=== PATIENT | female | born 1985 | race Caucasian/White ===

== ENCOUNTER 2017-07-19 12:12 | Observation (INO) | payer MEDICAID, OTHER ==
[~2017-07-19] VITALS: Ht 162.6 cm; Wt 77.1 kg
[2017-07-19] MEDS ORDERED: INSNPH SUBCUT (13:26)
[2017-07-19] MEDS ORDERED: METF10002 PO (13:27)
[2017-07-19 13:56] LABS: CLARITY URINE CLEAR (CLEAR); COLOR URINE YELLOW (YELLOW); KETONES URINE 1+ (NEGATIVE); LEUKOCYTE ESTERASE URINE NEGATIVE (NEGATIVE); NITRITE URINE NEGATIVE (NEGATIVE); OCCULT BLOOD URINE 2+ (NEGATIVE); PH URINE 6.5 (4.5-8.0); PROTEIN URINE NEGATIVE (NEGATIVE); UROBILINOGEN URINE 0.2 E.U./dL (0.2-1.0)
== END 2017-07-19 14:30 | disposition home or self-care (01) ==
LOC: L&D 12:12
PROVIDERS: ADMIT Specialist; ATTEND Specialist
DX: O23.43 Unspecified infection of urinary tract in pregnancy, third trimester (principal); Z3A.34 34 weeks gestation of pregnancy
CPT/HCPCS: 81001; 99281; G0378

== ENCOUNTER 2017-08-08 04:56 | Observation (INO) | payer OTHER ==
[~2017-08-08] VITALS: Ht 165.1 cm; Wt 81.6 kg
[~2017-08-08 04:56] MED LIST: INSNPH SUBCUT; METF10002 PO
[2017-08-08] MEDS ORDERED: LACTATED RINGERS 1,000 ML IV SCH (05:45)
[2017-08-08] MEDS ORDERED: INSU100V3 SUBCUT (06:00)
[2017-08-08] MEDS ORDERED: PNV1TABL76 MT (06:00)
[2017-08-08 06:02] LABS: CLARITY URINE CLEAR (CLEAR); COLOR URINE YELLOW (YELLOW); KETONES URINE 1+ (NEGATIVE); LEUKOCYTE ESTERASE URINE NEGATIVE (NEGATIVE); NITRITE URINE NEGATIVE (NEGATIVE); OCCULT BLOOD URINE NEGATIVE (NEGATIVE); PH URINE 7.5 (4.5-8.0); PROTEIN URINE NEGATIVE (NEGATIVE); SPECIFIC GRAVITY URINE 1.015 (1.005-1.030); UROBILINOGEN URINE 0.2 E.U./dL (0.2-1.0)
== END 2017-08-08 08:05 | disposition home or self-care (01) ==
LOC: L&D 04:56
PROVIDERS: ADMIT Obstetrics & Gynecology; ATTEND Obstetrics & Gynecology
DX: O26.893 Other specified pregnancy related conditions, third trimester (principal); R10.30 Lower abdominal pain, unspecified; Z3A.36 36 weeks gestation of pregnancy
CPT/HCPCS: 76805; 76818; 81003; 82962; 96360; 96361; 99281; G0378; J7120